=== PATIENT | female | born 1960 | race Caucasian/White ===

== ENCOUNTER 2019-01-18 09:42 | Outpatient (CLI) | payer BC ==
--- NOTE | 2019-01-18 10:24 | RAD ---
XR Chest Pa Lat STANDARD HISTORY: Systemic sclerosis. Baseline chest exam COMPARISON: None FINDINGS: The heart size is normal. The lungs are well expanded without focal areas of consolidation, pneumothorax or pleural effusions. There is evidence of old granulomatous disease. IMPRESSION: No radiographic evidence of acute cardiopulmonary process.
--- NOTE | 2019-01-18 10:38 | BD ---
EXAM: Bone densitometry using DEXA HISTORY: 58 yo female. Screening for postmenopausal osteoporosis FINDINGS: L1--bone mineral density 0.821 g/sq cm; T score -1.5 ; Z score -0.3 L2--bone mineral density 0.908 g/sq cm; T score -1.1 ; Z score 0.3 L3--bone mineral density 0.978 g/sq cm; T score -1.0 ; Z score 0.5 L4--bone mineral density 0.936 g/sq cm; T score -1.1 ; Z score 0.4 Total L1-L4--bone mineral density 0.913 g/sq cm; T score -1.2 ; Z score 0.2 Left femoral neck--bone mineral density0.602; T score -2.2 ; Z score -0.9 Total proximal left femur--bone mineral density 0.826; T score -1.0 ; Z score 0.0 The 10 year fracture risk for a major osteoporotic fracture is 16% and for a hip fracture is 2.5%. IMPRESSION: Osteopenia
== END 2019-01-18 09:43 | disposition home or self-care (01) ==
LOC: BICMAMMO 09:42
PROVIDERS: ATTEND Internal Medicine Rheumatology
DX: M81.0 Age-related osteoporosis without current pathological fracture (principal); M34.9 Systemic sclerosis, unspecified; M85.80 Other specified disorders of bone density and structure, unspecified site
CPT/HCPCS: 71046; 77080

== ENCOUNTER 2019-03-06 13:03 | Outpatient (CLI) | payer BC ==
--- NOTE | 2019-03-06 13:33 | RAD ---
EXAM: Chest PA and lateral: HISTORY: Dyspnea COMPARISON: 01/18/2019 FINDINGS: Lung grant are clear. Vascular markings are normal. Heart and mediastinum appear unremarkable. Osseous structures are unremarkable. IMPRESSION: No acute finding. No interval change from prior exam.
== END 2019-03-06 13:04 | disposition home or self-care (01) ==
LOC: RAD 13:03
PROVIDERS: ATTEND Internal Medicine
DX: R06.00 Dyspnea, unspecified (principal)
CPT/HCPCS: 71046